=== PATIENT | female | born 1950 | race Caucasian/White ===

== ENCOUNTER 2023-08-10 11:50 | Inpatient (IN) | payer MEDICARE, OTHER ==
[~2023-08-10] VITALS: Ht 165.1 cm; Wt 59.9 kg
[2023-08-10] MEDS ORDERED: HALOPERIDOL LACTATE 5 MG/1 ML VIAL ONE (11:59)
[2023-08-10] MEDS ORDERED: LORAZEPAM 2 MG/1 ML VIAL ONE (12:03)
[2023-08-10] MEDS ORDERED: HALOPERIDOL LACTATE 5 MG/1 ML VIAL IM ONE (12:15)
[2023-08-10] MEDS ORDERED: LORAZEPAM 2 MG/1 ML VIAL IM ONE (12:15)
[2023-08-10] MEDS ORDERED: DIVA125C2 PO (12:48)
[2023-08-10] MEDS ORDERED: LEVO25TA9 PO (12:48)
[2023-08-10] MEDS ORDERED: CEPH500T PO (12:48)
[2023-08-10 13:36] LABS: BASOPHILS # (AUTO) 0.1 K/UL (0.0-0.2); BASOPHILS % (AUTO) 1.4 % (0.0-2.0); EOSINOPHILS # (AUTO) 0.2 K/uL (0.0-0.7); EOSINOPHILS % (AUTO) 3.8 % (0.0-7.0); HEMATOCRIT 37.8 % (31.2-41.9); HEMOGLOBIN 12.3 g/dL (10.9-14.3); LYMPHOCYTES # (AUTO) 0.4 K/uL (0.8-4.8); LYMPHOCYTES % (AUTO) 9.2 % (20.5-51.5); MEAN CORPUSCULAR HEMOGLOBIN 29.5 uug (24.7-32.8); MEAN CORPUSCULAR HGB CONC 33 g/dL (32.3-35.6); MEAN CORPUSCULAR VOLUME 90.5 fL (75.5-95.3); MONOCYTES # (AUTO) 0.6 K/uL (0.1-1.30); MONOCYTES % (AUTO) 12.6 % (0.0-11.0); NEUTROPHILS # (AUTO) 3.3 K/uL (1.8-8.9); PLATELET COUNT (AUTO) 201 K/uL (179-408); RED BLOOD CELL COUNT(AUTO) 4.18 MIL/uL (3.63-4.92); RED CELL DISTRIBUTION WIDTH 13.4 % (12.3-17.7); WHITE BLOOD COUNT (AUTO) 4.6 K/uL (3.8-11.8)
[2023-08-10 13:54] LABS: DIFFERENTIAL COMMENT 1
[2023-08-10 14:00] LABS: CALCIUM 8.7 mg/dL (8.5-10.1); CARBON DIOXIDE 27 mmol/L (21-32); CHLORIDE 104 mmol/L (98-107); CREATININE 0.9 mg/dL (0.6-1.3); GLUCOSE 115 mg/dL (74-106); POTASSIUM 3.5 mmol/L (3.5-5.1); SODIUM SERUM 139 mmol/L (136-145); UREA NITROGEN, BLOOD 11 mg/dL (7-18)
[2023-08-10 14:26] LABS: ETHANOL < 3 MG/DL (0-10)
[2023-08-10 14:43] LABS: ALANINE AMINOTRANSFERASE 41 U/L (14-59); ALBUMIN 3.1 g/dL (3.4-5.0); ALKALINE PHOSPHATASE 113 U/L (50-136); ASPARTATE AMINOTRANSFERASE 46 U/L (15-37); BILIRUBIN,DIRECT 0.1 mg/dL (0.0-0.2); BILIRUBIN,TOTAL 0.5 mg/dL (0.2-1.0); TOTAL PROTEIN, SERUM 6.5 g/dL (6.4-8.2)
[2023-08-10] MEDS ORDERED: LEVOTHYROXINE SODIUM 25 MCG TABLET ONE (17:00)
[2023-08-10] MEDS ORDERED: DIVALPROEX SPRINKLE 125 MG CAP.SPRINK ONE (17:00)
[2023-08-10] MEDS: DIVALPROEX SPRINKLE 125 MG CAP.SPRINK PO SCH ×2 (17:04→17:10)
[2023-08-10] MEDS: LEVOTHYROXINE SODIUM 25 MCG TABLET PO SCH ×2 (17:04→17:10)
[2023-08-10] MEDS ORDERED: MAG HYDROX/AL HYDROX/SIMETH 30 ML LIQUID UDC PO PRN (21:00)
[2023-08-10] MEDS ORDERED: BLOOD SUGAR DIAGNOSTIC 1 EACH STRIP VI ONE (21:00)
[2023-08-10] MEDS ORDERED: MAGNESIUM HYDROXIDE 30 ML LIQUID UDC PO PRN (21:00)
[2023-08-10] MEDS ORDERED: TEMAZEPAM 7.5 MG CAPSULE PO PRN (21:00)
[2023-08-10 21:16] VITALS: BP 158/63; TEMP 98.2; O2SAT 98
[2023-08-11 08:05] VITALS: BP 112/61; TEMP 97.2; O2SAT 96
[2023-08-11] MEDS ORDERED: DIVALPROEX SPRINKLE 125 MG CAP.SPRINK PO SCH ×2 (09:15→13:00)
[2023-08-11 14:18] VITALS: BP 135/59; TEMP 98; O2SAT 95
[2023-08-11 16:00] VITALS: BP 127/61; TEMP 97.6; O2SAT 97
[2023-08-11] MEDS: DIVALPROEX SPRINKLE 125 MG CAP.SPRINK PO SCH (17:27)
[2023-08-11 20:00] VITALS: BP 175/62; TEMP 97; O2SAT 97
[2023-08-11] MEDS: ATORVASTATIN 20 MG TABLET PO SCH (20:04)
[2023-08-11] MEDS: LORAZEPAM 0.5 MG TABLET PO PRN (20:04)
[2023-08-11] MEDS: ACETAMINOPHEN 325 MG TABLET PO PRN (20:04)
[2023-08-12] MEDS: LEVOTHYROXINE SODIUM 25 MCG TABLET PO SCH (05:47)
[2023-08-12 07:59] VITALS: BP 163/62; TEMP 98; O2SAT 94
[2023-08-12] MEDS: DIVALPROEX SPRINKLE 125 MG CAP.SPRINK PO SCH (08:59)
[2023-08-12] MEDS: AMLODIPINE 5 MG TABLET PO SCH (11:03)
[2023-08-12] MEDS: busPIRone 5 MG TABLET PO SCH ×2 (12:32→17:29)
[2023-08-12] MEDS: GABAPENTIN 100 MG CAPSULE PO SCH ×2 (12:32→17:29)
[2023-08-12] MEDS: ENSURE WITH FIBER 237 ML LIQUID (CHOCOLATE) PO SCH ×2 (13:16→17:29)
[2023-08-12 15:17] VITALS: BP 148/62; TEMP 98; O2SAT 98
[2023-08-12 19:59] VITALS: BP 139/60; TEMP 98.1; O2SAT 96
[2023-08-12] MEDS: ATORVASTATIN 20 MG TABLET PO SCH (20:59)
[2023-08-12] MEDS: LORAZEPAM 0.5 MG TABLET PO PRN (20:59)
[2023-08-13] MEDS: LEVOTHYROXINE SODIUM 25 MCG TABLET PO SCH (07:00)
[2023-08-13 07:29] LABS: ALBUMIN 3.3 g/dL (3.4-5.0); BILIRUBIN,TOTAL 1.1 mg/dL (0.2-1.0); CREATININE 0.9 mg/dL (0.6-1.3); POTASSIUM 3.5 mmol/L (3.5-5.1); TOTAL PROTEIN, SERUM 7.4 g/dL (6.4-8.2)
[2023-08-13 08:21] VITALS: BP 168/60; TEMP 97.2; O2SAT 97
[2023-08-13] MEDS: GABAPENTIN 100 MG CAPSULE PO SCH ×2 (10:33→17:46)
[2023-08-13] MEDS: busPIRone 5 MG TABLET PO SCH ×3 (10:33→17:46)
[2023-08-13] MEDS: AMLODIPINE 5 MG TABLET PO SCH (10:33)
[2023-08-13] MEDS: ENSURE WITH FIBER 237 ML LIQUID (CHOCOLATE) PO SCH ×3 (10:34→17:47)
[2023-08-13 12:00] VITALS: BP 127/64
[2023-08-13 16:10] VITALS: BP 124/86; TEMP 97.6; O2SAT 97
[2023-08-13 20:10] VITALS: BP 134/63; TEMP 97.8; O2SAT 95
[2023-08-13] MEDS: ATORVASTATIN 20 MG TABLET PO SCH (22:08)
[2023-08-14] MEDS: LEVOTHYROXINE SODIUM 25 MCG TABLET PO SCH (06:58)
[2023-08-14 07:43] VITALS: BP 168/70; TEMP 98; O2SAT 97
[2023-08-14] MEDS: AMLODIPINE 5 MG TABLET PO SCH (08:52)
[2023-08-14] MEDS: busPIRone 5 MG TABLET PO SCH ×3 (08:52→17:09)
[2023-08-14] MEDS: ENSURE WITH FIBER 237 ML LIQUID (CHOCOLATE) PO SCH ×3 (08:53→17:10)
[2023-08-14] MEDS: GABAPENTIN 100 MG CAPSULE PO SCH ×2 (08:53→17:10)
[2023-08-14 16:49] VITALS: BP 154/70; TEMP 98; O2SAT 96
[2023-08-14 20:16] VITALS: BP 160/71; TEMP 98; O2SAT 98
[2023-08-14] MEDS: ATORVASTATIN 20 MG TABLET PO SCH (20:39)
[2023-08-14] MEDS: ACETAMINOPHEN 325 MG TABLET PO PRN (20:39)
[2023-08-15] MEDS: LEVOTHYROXINE SODIUM 25 MCG TABLET PO SCH (06:27)
[2023-08-15 07:55] VITALS: BP 121/54; TEMP 98.2; O2SAT 97
[2023-08-15] MEDS: busPIRone 5 MG TABLET PO SCH ×3 (08:47→17:19)
[2023-08-15] MEDS: AMLODIPINE 5 MG TABLET PO SCH (08:47)
[2023-08-15] MEDS: GABAPENTIN 100 MG CAPSULE PO SCH ×3 (08:47→17:21)
[2023-08-15] MEDS: ENSURE WITH FIBER 237 ML LIQUID (CHOCOLATE) PO SCH ×3 (08:49→17:20)
[2023-08-15] MEDS: LORAZEPAM 0.5 MG TABLET PO PRN ×2 (10:18→21:02)
[2023-08-15] MEDS: SERTRALINE HCL 50 MG TABLET PO SCH (12:46)
[2023-08-15 16:04] VITALS: BP 108/54; TEMP 98; O2SAT 97
[2023-08-15 19:52] VITALS: BP 112/56; TEMP 98.1; O2SAT 96
[2023-08-15] MEDS: ATORVASTATIN 20 MG TABLET PO SCH (21:03)
[2023-08-16] MEDS: LORAZEPAM 0.5 MG TABLET PO PRN ×2 (04:20→21:43)
[2023-08-16] MEDS: LEVOTHYROXINE SODIUM 25 MCG TABLET PO SCH (04:20)
[2023-08-16 07:30] VITALS: BP 143/71; TEMP 97.8; O2SAT 98
[2023-08-16] MEDS: ENSURE WITH FIBER 237 ML LIQUID (CHOCOLATE) PO SCH ×3 (09:29→17:08)
[2023-08-16] MEDS: AMLODIPINE 5 MG TABLET PO SCH (09:29)
[2023-08-16] MEDS: GABAPENTIN 100 MG CAPSULE PO SCH ×2 (09:29→12:59)
[2023-08-16] MEDS: busPIRone 5 MG TABLET PO SCH ×3 (09:29→17:08)
[2023-08-16] MEDS: SERTRALINE HCL 50 MG TABLET PO SCH ×2 (12:59→17:08)
[2023-08-16 15:33] VITALS: BP 136/63; TEMP 98; O2SAT 98
[2023-08-16 20:00] VITALS: BP 135/52; TEMP 98; O2SAT 95
[2023-08-16 20:47] LABS: THYROID STIMULATING HORMONE 2.382 mIU/mL (0.358-3.740)
[2023-08-16] MEDS ORDERED: GABAPENTIN 100 MG CAPSULE PO SCH (21:00)
[2023-08-16] MEDS: ATORVASTATIN 20 MG TABLET PO SCH (21:43)
[2023-08-17] MEDS: LEVOTHYROXINE SODIUM 25 MCG TABLET PO SCH (06:31)
[2023-08-17 07:52] VITALS: BP 122/65; TEMP 98.2; O2SAT 98
[2023-08-17] MEDS ORDERED: GABAPENTIN 100 MG CAPSULE PO SCH ×2 (08:00→17:00)
[2023-08-17] MEDS: AMLODIPINE 5 MG TABLET PO SCH (08:23)
[2023-08-17] MEDS: busPIRone 5 MG TABLET PO SCH ×2 (08:23→13:37)
[2023-08-17] MEDS: ENSURE WITH FIBER 237 ML LIQUID (CHOCOLATE) PO SCH ×2 (08:23→13:38)
[2023-08-17] MEDS: SERTRALINE HCL 50 MG TABLET PO SCH (13:37)
[2023-08-17 15:38] VITALS: BP 110/69; TEMP 98.2; O2SAT 98
== END 2023-08-17 16:00 | DRG 885 ==
LOC: ER 11:50 → TRANSITION 16:32 → GPS 20:52
PROVIDERS: ADMIT Psychiatry & Neurology Psychosomatic Medicine; ATTEND Nurse Practitioner Acute Care
DX: F39 Unspecified mood [affective] disorder (principal); F03.911 Unspecified dementia, unspecified severity, with agitation; E44.1 Mild protein-calorie malnutrition; R47.01 Aphasia; F03.94 Unspecified dementia, unspecified severity, with anxiety; F03.92 Unspecified dementia, unspecified severity, with psychotic disturbance; E78.5 Hyperlipidemia, unspecified; E03.9 Hypothyroidism, unspecified; Z87.440 Personal history of urinary (tract) infections; Z79.890 Hormone replacement therapy; E88.09 Other disorders of plasma-protein metabolism, not elsewhere classified; Z68.22 Body mass index [BMI] 22.0-22.9, adult; Z91.199 Patient's noncompliance with other medical treatment and regimen due to unspecified reason; Z66 Do not resuscitate; Z88.0 Allergy status to penicillin
CPT/HCPCS: 36415; 72170; 82747; 83921; 84443; 85014; 85025; A4606; A4663; G0480; J1630; J2060